=== PATIENT | female | born 1940 | race Caucasian/White ===

== ENCOUNTER 2022-01-16 23:28 | Emergency (ER) | payer MEDICARE, OTHER ==
[2022-01-17 00:08] LABS: BASOPHILS # (AUTO) 0.1 10^3/uL (0.0-0.1); BASOPHILS % (AUTO) 0.9 %; EOSINOPHILS # (AUTO) 0.4 10^3/uL (0.0-0.7); EOSINOPHILS % (AUTO) 5.2 %; HCT - HEMATOCRIT 37.4 % (37.0-47.0); LYMPHOCYTES # (AUTO) 1.5 10^3/uL (1.5-3.5); LYMPHOCYTES % (AUTO) 17.9 %; MEAN CORPUSCULAR HEMOGLOBIN 30.2 pg (27.0-31.0); MEAN CORPUSCULAR HGB CONC 32.1 g/dL (32.0-36.0); MEAN PLATELET VOLUME 9.7 fL (7.9-10.8); MONOCYTES # (AUTO) 0.9 10^3/uL (0.0-1.0); MONOCYTES % (AUTO) 10.6 %; NEUTROPHILS # (AUTO) 5.5 10^3/uL (1.5-6.6); NEUTROPHILS % (AUTO) 64.7 %; PLT - PLATELET COUNT 259 10^3/uL (130-450); RED BLOOD COUNT 3.98 10^6/uL (4.20-5.40); RED CELL DISTRIBUTION WIDTH 14.4 % (12.0-15.0); WHITE BLOOD COUNT 8.5 x10^3/uL (4.8-10.8)
--- NOTE | 2022-01-17 00:16 | XRAY Report ---
PROCEDURE: Chest 1 View X-Ray INDICATIONS: Chest Pain TECHNIQUE: One view of the chest was acquired. COMPARISON: 03/31/2014. 03/31 FINDINGS: Surgical changes and devices: None. Lungs and pleura: There are a few patchy indistinct opacities in the right mid and lower lung zones. No pleural effusions or pneumothorax. Mediastinum: Mediastinal contours appear normal. Heart size is normal. Bones and chest wall: No suspicious bony lesions. Overlying soft tissues appear unremarkable. IMPRESSION: 1. Patchy indistinct opacities in the right lung base suggestive of pneumonia given clinical history. Reviewed by: Fei Borjas MD on 01/17/2022 12:15 AM PDT Approved by: Fei Borjas MD on 01/17/2022 12:15 AM PDT Station ID: [id number]
[2022-01-17 00:21] LABS: ALBUMIN 3.7 g/dL (3.2-5.5); ALBUMIN/GLOBULIN RATIO 0.9 (1.0-2.2); BILIRUBIN,TOTAL 0.5 mg/dL (0.2-1.0); CALCIUM 9.8 mg/dL (8.5-10.3); CREATININE 1.6 mg/dL (0.4-1.0); POTASSIUM 4.1 mmol/L (3.5-5.0); TOTAL PROTEIN 7.7 g/dL (6.7-8.2)
--- NOTE | 2022-01-17 00:23 | ED Physician Documentation ---
PD HPI DYSPNEA - Stated complaint Stated Complaint: SOA - Chief complaint Chief Complaint: Resp - History obtained from History obtained from: Patient - History of Present Illness Timing - onset: How many days ago (4-5) Timing - duration: Days Timing - details: Gradual onset, Waxing and waning Pain level max: 0 Pain level now: 0 Improved by: Rest Worsened by: Exertion Associated symptoms: Cough, Wheezing, Bilateral edema. No: Fever, Chest pain / discomfort Similar symptoms before: Diagnosis (COPD) Recently seen: Not recently seen - Additional information Additional information: c/o 4-5 days of gradually worsening shortness of breath, CHASE , with productive cough. Denies fever. She is COVID vaccinated with booster. Review of Systems Constitutional: reports: Reviewed and negative Nose: reports: Reviewed and negative Throat: denies: Sore throat Cardiac: reports: Reviewed and negative Respiratory: reports: Dyspnea, Cough, Wheezing GI: reports: Reviewed and negative PD PAST MEDICAL HISTORY - Past Medical History Past Medical History: Yes Cardiovascular: Hypertension, High cholesterol Respiratory: Asthma, COPD Endocrine/Autoimmune: Type 2 diabetes - Past Surgical History Past Surgical History: Yes General: Cholecystectomy - Present Medications Home Medications: Ambulatory Orders Medication Instructions Recorded Confirmed Aspirin [Aspir 81] 81 mg QPM 03/31/14 01/16/22 Albuterol Sulf [Ventolin Hfa 2 puffs INH QID 01/16/22 01/17/22 Inhaler] Lisinopril/Hydrochlorothiazide 1 tab PO DAILY 01/16/22 01/16/22 [Zestoretic 20-12.5 mg Tablet] amLODIPine [Norvasc] 5 mg PO DAILY 01/16/22 01/16/22 Azithromycin [Zithromax] 250 mg PO DAILY #4 tablet 01/17/22 Insulin Glargine [Lantus Solostar] 50 units SQ DAILY 01/17/22 01/17/22 Latanoprost 0.005% Ophth Drops 2 drops EACHEYE TID 01/17/22 01/17/22 [Xalatan Ophth Drops] Metoprolol Succinate [Toprol Xl] 50 mg PO DAILY 01/17/22 01/17/22 Simvastatin [Zocor] 40 mg PO DAILY 01/17/22 01/17/22 predniSONE [Deltasone] 40 mg PO DAILY 3 Days #6 tablet 01/17/22 - Allergies Allergies/Adverse Reactions: Allergies Allergy/AdvReac Type Severity Reaction Status Date / Time Penicillins Allergy Edema Verified 01/16/22 23:39 Sulfa (Sulfonamide Allergy Unknown Verified 01/16/22 23:39 Antibiotics) - Social History Does the pt smoke?: Yes Smoking Status: Current every day smoker Does the pt drink ETOH?: No PD ED PE NORMAL - Vitals Vital signs reviewed: Yes - General General: Alert and oriented X 3, No acute distress, Well developed/nourished - HEENT HEENT: Moist mucous membranes - Neck Neck: Supple, no meningeal sign - Cardiac Cardiac: RRR, No murmur - Respiratory Respiratory: No respiratory distress - Abdomen Abdomen: Soft, Non tender - Derm Derm: Normal color, Warm and dry PD ED PE EXPANDED - Respiratory Respiratory: Wheezing (bilateral expiratory wheeze , decreased breath sounds bilaterally) Results - Vitals Vitals: Oxygen O2 Source Room air - EKG (time done) No standard instances Rate: Rate (enter#) (70) Rhythm: NSR [place]: LAD, Anterior hemiblock Intervals: Prolonged ND, RBBB QRS: LVH Ischemia: Normal ST segments - Labs Labs: Laboratory Tests 01/16/22 01/16/22 01/16/22 23:48 23:48 23:48 WBC 8.5 RBC 3.98 L Hgb 12.0 Hct 37.4 MCV 94.0 MCH 30.2 MCHC 32.1 RDW 14.4 Plt Count 259 MPV 9.7 Neut # (Auto) 5.5 Lymph # (Auto) 1.5 [place] # (Auto) 0.9 Eos # (Auto) 0.4 Baso # (Auto) 0.1 Absolute Nucleated RBC 0.00 Nucleated RBC % 0.0 Sodium 137 Potassium 4.1 Chloride 101 Carbon Dioxide 22 Anion Gap 14.0 H BUN 41 H Creatinine 1.6 H Estimated GFR (MDRD) 31 L Glucose 329 H Lactic Acid Calcium 9.8 Total Bilirubin 0.5 AST 25 ALT 26 Alkaline Phosphatase 60 Troponin I High Sens 13.5 B-Natriuretic Peptide Total Protein 7.7 Albumin 3.7 Globulin 4.0 Albumin/Globulin Ratio 0.9 L Lipase 39 Serum Ketones 01/16/22 01/16/22 01/17/22 23:48 23:48 00:47 WBC RBC Hgb Hct MCV MCH MCHC RDW Plt Count MPV Neut # (Auto) Lymph # (Auto) [place] # (Auto) Eos # (Auto) Baso # (Auto) Absolute Nucleated RBC Nucleated RBC % Sodium Potassium Chloride Carbon Dioxide Anion Gap BUN Creatinine Estimated GFR (MDRD) Glucose Lactic Acid 1.5 Calcium Total Bilirubin AST ALT Alkaline Phosphatase Troponin I High Sens B-Natriuretic Peptide 87 Total Protein Albumin Globulin Albumin/Globulin Ratio Lipase Serum Ketones NEGATIVE - Rads (name of study) chest xray Radiology: Prelim report reviewed, See rad report PD MEDICAL DECISION MAKING - ED course Complexity details: reviewed results, re-evaluated patient, considered differential, d/w patient ED course: mildly elevated bun/creatinine (41/1.6; she is on diuretic as combo htn medication), and blood sugar 329 but serum ketones negative. Her CBC is normal as is her hs-cTn, BNP, and lactic acid level. She is in NAD at rest and reports improvement after duoneb followed by albuterol neb. she is also given 10mg IV decadron. there appears to be pattern on cxr of early right-sided pneumonia and thus given zithromax in ED . She says she feels well enough to go home, requests d/c. Her pulse ox is low 90s on room air but NAD and speaks in full sentences. there is residual end-expiratory wheeze bilaterally but she has increased air movement. We carefully reviewed return precautions and she says she will come back if worse in any way .She does not use oxygen at home.Prescriptions for four more days of azithromycin and 3 days of prednisone electronically submitted to her pharmacy of choice Departure - Departure Disposition: 01 Home, Self Care Clinical Impression: Pneumonia Qualifiers: Pneumonia type: due to unspecified organism Laterality: right Lung location: unspecified part of lung Qualified Code(s): J18.9 - Pneumonia, unspecified organism Condition: Good Instructions: ED Pneumonia Adult Prescriptions: predniSONE [Deltasone] 40 mg PO DAILY 3 Days #6 tablet Azithromycin [Zithromax] 250 mg PO DAILY #4 tablet Comments: The chest xray shows pneumonia in the right lung, but the appearance suggests it is very early in the infection so hopefully the antibiotic will eliminate the pneumonia before it has a chance to progress. If your symptoms worsen, please return to the emergency department. If your symptoms do not worsen but are not improving after 3-4 days , seek reevaluation with your primary care provider. Prescriptions for the rest of the antibiotic (azithromycin) and another 3 days of steroid (prednisone) [facility] [place] Discharge Date/Time: 01/17/22 03:11
[2022-01-17] MEDS ORDERED: IPRATROPIUM/ALBUTEROL 3 ML NEB INH STA (00:24)
[2022-01-17] MEDS ORDERED: DEXAMETHASONE 10 MG/ML VIAL IVP STA (01:46)
[2022-01-17] MEDS ORDERED: ALBUTEROL NEB 2.5 MG/3 ML INH STA (01:46)
[2022-01-17] MEDS ORDERED: AZITHROMYCIN 250 MG TABLET PO STA (01:46)
[2022-01-17] MEDS ORDERED: guaiFENesin/DEXTROMETHORPHAN 10 ML UDC PO STA (02:48)
[2022-01-17] MEDS ORDERED: INSULIN REGULAR HUMAN 100 UNIT/1 ML 10 ML MDV IVP STA (02:59)
[2022-01-17] MEDS ORDERED: INSULIN REGULAR HUMAN 100 UNIT/1 ML 10 ML MDV SUBQ STA (03:03)
[2022-01-17 03:19] VITALS: BP 135/68
== END 2022-01-17 03:11 | disposition home or self-care (01) ==
LOC: ED 23:28
DX: J18.9 Pneumonia, unspecified organism (principal); I10 Essential (primary) hypertension; F17.200 Nicotine dependence, unspecified, uncomplicated; J44.9 Chronic obstructive pulmonary disease, unspecified; E11.9 Type 2 diabetes mellitus without complications; Z79.4 Long term (current) use of insulin
CPT/HCPCS: 36415; 71045; 80053; 82009; 83605; 83690; 83880; 84484; 85025; 93005; 94640; 94664; 96374; 99283; 99284; A9270; J1815

== ENCOUNTER 2023-05-25 11:15 | Emergency (ER) | payer MEDICARE, OTHER ==
--- OUTSIDE RECORDS SUMMARY | 2023-05-25 12:04 | EXTERNAL MEDICAL SUMMARY RPT | Continuity of Care Document ---
Author Name Unknown Address [address] [place] [address] Phone Organization [facility] Address [address] [place] [address] Phone Care Team Providers Care Cleaning Maid Name Role Phone Hadley Hunt Unavailable Unavailable Allergies and Intolerances date description facility reaction severity (no date) [facility] (no reaction) (no se verity) Medications date description facility 2023-03-01 00:[facility] [facility] Results/Labs test date facility value unit notes Social History date description facility 2023-03-30 00:00 Ex-smoker (finding) [facility] Vital Signs date measurement value units 2023-03-30 00:00 BMI 30.9 kg/m2 2023-03-30 00:00 BP_diastolic 72 mmHg 2023-03-30 00:00 BP_systolic 138 mmHg 2023-03-30 00:00 heart_rate 78 /min 2023-03-30 00:00 height_metric 160.02 cm 2023-03-30 00:00 height_standard 63 in 2023-03-30 00:00 weight_metric 79.15 kg 2023-03-30 00:00 weight_standard 174.5 lb
[2023-05-25] MEDS ORDERED: KETOROLAC 30 MG/ML VIAL IM STA (12:13)
--- NOTE | 2023-05-25 12:17 | ED Physician Documentation ---
History of Present Illness - Stated complaint Stated Complaint: RT ARM PX - Chief complaint Chief Complaint: Ext Problem - Additonal information Additional information: 82-year-old female presents emergency department for evaluation of right hand wrist and forearm pain. She states that on Monday evening she was crocheting. She states that she tries not to zahida too much because she often gets hand and forearm pain. While crocheting she dropped an instrument and she bent down to pick it up and felt a pop behind her right shoulder blade. She did not think much of it. However when she woke up Monday she had pain on her right forearm. She finds it difficult to move the hand due to pain especially on the dorsum of the forearm. There is no swelling or redness. There is only pain when she moves. No falls or trauma otherwise. She does report a history of carpal tunnel syndrome that she was hesitant to get surgery for. She is a diabetic. No blood thinners. No fevers. Review of Systems Constitutional: denies: Fever Cardiac: reports: Reviewed and negative Respiratory: reports: Reviewed and negative GI: reports: Reviewed and negative Musculoskeletal: reports: Extremity pain. denies: Extremity swelling PD PAST MEDICAL HISTORY - Past Medical History Cardiovascular: Hypertension, High cholesterol Respiratory: Asthma, COPD Endocrine/Autoimmune: Type 2 diabetes - Past Surgical History Past Surgical History: Yes General: Cholecystectomy - Present Medications Home Medications: Ambulatory Orders Medication Instructions Recorded Confirmed Aspirin [Aspir 81] 81 mg ORAL QPM 03/31/14 05/25/23 Albuterol Sulf [Ventolin Hfa 2 puffs INH QID 01/16/22 05/25/23 Inhaler] Lisinopril/Hydrochlorothiazide 1 tab PO DAILY 01/16/22 05/25/23 [Zestoretic 20-12.5 mg Tablet] amLODIPine [Norvasc] 5 mg PO DAILY 01/16/22 05/25/23 Insulin Glargine [Lantus Solostar] 50 units SQ DAILY 01/17/22 05/25/23 Latanoprost 0.005% Ophth Drops 2 drops EACHEYE TID 01/17/22 05/25/23 [Xalatan Ophth Drops] Metoprolol Succinate [Toprol Xl] 50 mg PO DAILY 01/17/22 05/25/23 Atorvastatin [Lipitor] 20 mg ORAL HS 05/25/23 05/25/23 Glipizide [Glipizide ER] 5 mg PO DAILY 05/25/23 05/25/23 oxyCODONE [Roxicodone] 5 mg PO TID PRN #20 tablet 05/25/23 - Allergies Allergies/Adverse Reactions: Allergies Allergy/AdvReac Type Severity Reaction Status Date / Time Penicillins Allergy Edema Verified 05/25/23 11:23 Sulfa (Sulfonamide Allergy Unknown Verified 05/25/23 11:23 Antibiotics) - Social History Does the pt smoke?: Yes Smoking Status: Current every day smoker Does the pt drink ETOH?: No PD ED PE NORMAL - General General: Alert and oriented X 3. No: No acute distress (Appears uncomfortable and in pain) - Neck Neck: Other (No tenderness elicited with palpation of the midline cervical or thoracic lumbar spinous processes. Full range of motion of the neck in all planes without pain elicited.) - Cardiac Cardiac: RRR, No murmur, Strong equal pulses (2+ radial pulses both hands) - Respiratory Respiratory: No respiratory distress, Clear bilaterally - Abdomen Abdomen: Normal bowel sounds, Soft - Extremities Extremities: No tenderness to palpate, Other (Patient moves the right shoulder without any tenderness. Pain is elicited with extension of the elbow along the dorsum of the forearm. No tenderness with palpation of the forearm. Pain extends from the fingers on dorsum of the forearm with flexion of the fingers. no pain with passive extension) Results - Vitals Vitals: Vital Signs - 24 hr 05/25/23 11:23 Temperature 37 C Heart Rate 71 Respiratory 16 Rate Blood Pressure 142/65 H O2 Saturation 95 Oxygen O2 Source Room air - Labs Labs: Laboratory Tests 05/25/23 05/25/23 12:30 12:30 WBC 14.5 H RBC 4.38 Hgb 13.7 Hct 41.3 MCV 94.3 MCH 31.3 H MCHC 33.2 RDW 13.3 Plt Count 284 MPV 9.9 Neut # (Auto) 11.1 H Lymph # (Auto) 1.8 [place] # (Auto) 1.2 H Eos # (Auto) 0.2 Baso # (Auto) 0.1 Absolute Nucleated RBC 0.00 Nucleated RBC % 0.0 Sodium 135 Potassium 4.3 Chloride 102 Carbon Dioxide 26 Anion Gap 7.0 BUN 32 H Creatinine 1.4 H Estimated GFR (MDRD) 36 L Glucose 165 H Calcium 10.9 H - Rads (name of study) right forearm Relevant Findings:: Final report received (Ill-defined calcification of the dorsal aspect of the wrist, suggest clinical correlation for possible triquetral fracture.) right shoulder Relevant Findings:: Final report received (No acute osseous abnormality) PD Medical Decision Making - ED course Complexity details: reviewed results, d/w patient, d/w family ED course: 82-year-old female presents emergency department for evaluation of acute right forearm pain that began 2 days ago. She states she has carpal tunnel and it can be bad when crocheting. She dropped a needle bent down to pick it up and felt a pop in her shoulder but since then she has been having pain in the forearm and wrist especially with any movement. No swelling, erythema or skin lesions. On exam she is quite tender on the dorsum of the forearm and wrist. History and exam was not consistent with a tenosynovitis. Electrolytes show chronic kidney disease essentially unchanged. She does have hyperglycemia not unexpected in the setting of known diabetes. CBC and electrolytes were obtained. She does have some mild leukocytosis white count of 14,000. However no fevers or evidence of infection. I suspect this is stress marginalization. I did obtain a shoulder and forearm x-ray. The interpretation by the radiologist suggest possibility of a triquetral fracture and the patient is indeed tender in this region. Given this she was placed in a wrist Velcro splint and given a sling. She did receive a single dose of Toradol here in the ER which markedly improved her pain. Unfortunately she does have chronic kidney disease making long-term use of NSAIDs undesirable. I will make the recommendation to ice the wrist, take Tylenol and a limited prescription of oxycodone for more severe pain. She will follow very closely with Dr. Fair her pcp She should obtain referral to orthopedics. The usual emergent return precautions were discussed for worsening symptoms. Departure - Departure Disposition: 01 Home, Self Care Clinical Impression: Right forearm pain Fracture of triquetrum of right wrist Qualifiers: Encounter type: initial encounter Fracture type: closed Fracture alignment: nondisplaced Qualified Code(s): S62.114A - Nondisplaced fracture of triquetrum [cuneiform] bone, right wrist, initial encounter for closed fracture CKD (chronic kidney disease) stage 3, GFR 30-59 ml/min Qualifiers: Chronic kidney disease stage 3 subtype: stage 3b (GFR 30-44) Qualified Code(s): N18.32 - Chronic kidney disease, stage 3b Condition: Stable Record reviewed to determine appropriate education?: Yes Instructions: ED Splint Care Velcro Follow-Up: Hadley Hunt MD [Primary Care Provider] - Prescriptions: oxyCODONE [Roxicodone] 5 mg PO TID PRN #20 tablet PRN Reason: Pain Comments: You were seen today because you develop pain in your right wrist and forearm. You do not remember any trauma but an x-ray of the wrist and forearm suggest a triquetral fracture. This is a bone in the wrist. Because you have poor kidney function is not typically safe for you to take NSAID medication like ibuprofen or naproxen. I would like you to wear the wrist will splint at all times with the exception of bathing or showering. You should obtain a referral to orthopedics from Dr. Fair. You can take Tylenol 500 mg 3 times a day for discomfort but for more severe pain a limited amount of oxycodone is being sent to the pharmacy. Use this cautiously. Will make you more prone to falls, dizzy or cause delirium. I am prescribing a short course of narcotic pain medication for you. These are potentially dangerous and addictive medications that should be used carefully. These medications may constipate you. Take an [id number] stool softener (docusate) twice daily with plenty of water while taking these medications. If you go 24 hours without a bowel movement, take [id number] miralax, per package instructions. Do not drink or drive while taking these medications. If you received narcotic or sedating medications while in the emergency department, do not drive for 24 hours. Store this medication in a safe, secure place and out of reach of children. It is a violation of federal law to give or sell this medication to another person or to use in a manner other than prescribed. The ED will not refill narcotic prescriptions, including prescriptions lost or stolen. To dispose of unwanted medications: 1. [facility] at [address] in [place] has a medication drop box. They accept prescription medications (in pill form) Monday through Monday 9:00 a.m. to 5:00 p.m. 2. The [facility] [employer] accepts prescription medications (in pill form only) for disposal year round. Call for more information. 3. Contact the [facility] for the next [facility] sponsored prescription drug collection event. , [phone], or [phone]; Note that many narcotic pain relievers also contain Tylenol/acetaminophen. Please ensure that your total dose of acetaminophen from all sources does not exceed 3 g (3000 mg) per day. Forms: PCP List
[2023-05-25 12:43] LABS: BASOPHILS # (AUTO) 0.1 10^3/uL (0.0-0.1); BASOPHILS % (AUTO) 0.8 %; EOSINOPHILS # (AUTO) 0.2 10^3/uL (0.0-0.7); EOSINOPHILS % (AUTO) 1.7 %; HCT - HEMATOCRIT 41.3 % (37.0-47.0); HGB - HEMOGLOBIN 13.7 g/dL (12.0-16.0); LYMPHOCYTES # (AUTO) 1.8 10^3/uL (1.5-3.5); LYMPHOCYTES % (AUTO) 12.2 %; MEAN CORPUSCULAR HEMOGLOBIN 31.3 pg (27.0-31.0); MEAN CORPUSCULAR HGB CONC 33.2 g/dL (32.0-36.0); MEAN CORPUSCULAR VOLUME 94.3 fL (81.0-99.0); MEAN PLATELET VOLUME 9.9 fL (7.9-10.8); MONOCYTES # (AUTO) 1.2 10^3/uL (0.0-1.0); MONOCYTES % (AUTO) 8.3 %; NEUTROPHILS # (AUTO) 11.1 10^3/uL (1.5-6.6); NEUTROPHILS % (AUTO) 76.2 %; PLT - PLATELET COUNT 284 10^3/uL (130-450); RED BLOOD COUNT 4.38 10^6/uL (4.20-5.40); RED CELL DISTRIBUTION WIDTH 13.3 % (12.0-15.0); WHITE BLOOD COUNT 14.5 x10^3/uL (4.8-10.8)
--- NOTE | 2023-05-25 12:50 | XRAY Report ---
PROCEDURE: Shoulder 3 View RT INDICATIONS: pop near scapula; now right shoulder pain TECHNIQUE: 4 views of the shoulder were acquired. COMPARISON: None. FINDINGS: Bones: No fractures or dislocations. No suspicious bony lesions. Moderate acromioclavicular joint osteoarthritic changes are seen. Visualized ribs appear intact. Soft tissues: No suspicious soft tissue calcifications. The visualized lungs are within normal limi ts. IMPRESSION: No acute bony abnormality. Moderate acromioclavicular joint osteoarthritis. Reviewed by: López Maxwell MD on 05/25/2023 12:49 PM PDT Approved by: López Maxwell MD on 05/25/2023 12:49 PM PDT Station ID: [id number]
--- NOTE | 2023-05-25 12:52 | XRAY Report ---
PROCEDURE: Forearm RT INDICATIONS: pain forearm with passive extension TECHNIQUE: 3 views of the forearm were acquired. COMPARISON: None FINDINGS: Bones: Ill-defined calcification over dorsal aspect of wrist is seen. No radial or ulnar fracture. El bow and wrist joint osteoarthritic changes are seen. No suspicious bony lesions. Soft tissues: No suspicious soft tissue calcifications or masses. IMPRESSION: Ill-defined calcifications in dorsal aspect of wrist joint, suggest clinical correlation for possible triquetral fracture. No other fracture or dislocation is seen. Wrist joint and elbow joint osteoarth ritis. Reviewed by: López Maxwell MD on 05/25/2023 12:51 PM PDT Approved by: López Maxwell MD on 05/25/2023 12:51 PM PDT Station ID: [id number]
[2023-05-25 13:15] LABS: CALCIUM 10.9 mg/dL (8.5-10.3); CREATININE 1.4 mg/dL (0.6-1.3); POTASSIUM 4.3 mmol/L (3.5-4.5)
[2023-05-25 13:49] VITALS: BP 111/79; O2SAT 97
== END 2023-05-25 13:47 | disposition home or self-care (01) ==
LOC: ED 11:15
DX: S62.114A Nondisplaced fracture of triquetrum [cuneiform] bone, right wrist, initial encounter for closed fracture (principal); X58.XXXA Exposure to other specified factors, initial encounter; N18.32 Chronic kidney disease, stage 3b; I10 Essential (primary) hypertension; E11.9 Type 2 diabetes mellitus without complications; Z79.84 Long term (current) use of oral hypoglycemic drugs; F17.200 Nicotine dependence, unspecified, uncomplicated
CPT/HCPCS: 36415; 80048; 85025; 96372; 99284

== ENCOUNTER 2024-03-11 10:28 | Outpatient (CLI) | payer MEDICARE, OTHER ==
[2024-03-11 11:47] LABS: BASOPHILS # (AUTO) 0.1 10^3/uL (0.0-0.1); BASOPHILS % (AUTO) 1.2 %; EOSINOPHILS # (AUTO) 0.4 10^3/uL (0.0-0.7); EOSINOPHILS % (AUTO) 3.3 %; HCT - HEMATOCRIT 34.7 % (37.0-47.0); HGB - HEMOGLOBIN 11.6 g/dL (12.0-16.0); LYMPHOCYTES # (AUTO) 2.3 10^3/uL (1.5-3.5); LYMPHOCYTES % (AUTO) 19.1 %; MEAN CORPUSCULAR HGB CONC 33.4 g/dL (32.0-36.0); MEAN CORPUSCULAR VOLUME 95.6 fL (81.0-99.0); MEAN PLATELET VOLUME 9.3 fL (7.9-10.8); MONOCYTES # (AUTO) 1.1 10^3/uL (0.0-1.0); MONOCYTES % (AUTO) 9.1 %; NEUTROPHILS # (AUTO) 7.9 10^3/uL (1.5-6.6); NEUTROPHILS % (AUTO) 66.4 %; PLT - PLATELET COUNT 400 10^3/uL (130-450); RED BLOOD COUNT 3.63 10^6/uL (4.20-5.40); RED CELL DISTRIBUTION WIDTH 12.6 % (12.0-15.0); WHITE BLOOD COUNT 11.9 x10^3/uL (4.8-10.8)
[2024-03-11 12:08] LABS: CALCIUM 11.9 mg/dL (8.5-10.3); CREATININE 2.1 mg/dL (0.6-1.3); POTASSIUM 4.6 mmol/L (3.5-4.5)
== END 2024-03-11 10:29 | disposition home or self-care (01) ==
LOC: LAB.N 10:28
PROVIDERS: ATTEND Internal Medicine Interventional Cardiology
DX: I70.218 Atherosclerosis of native arteries of extremities with intermittent claudication, other extremity (principal)
CPT/HCPCS: 36415; 80048; 85025

== ENCOUNTER 2024-04-23 12:46 | Outpatient (CLI) | payer MEDICARE, OTHER ==
[2024-04-23 18:02] LABS: CALCIUM 11.3 mg/dL (8.5-10.3); POTASSIUM 4.7 mmol/L (3.5-4.5)
== END 2024-04-23 12:47 | disposition home or self-care (01) ==
LOC: LAB.N 12:46
PROVIDERS: ATTEND Internal Medicine Interventional Cardiology
DX: N18.4 Chronic kidney disease, stage 4 (severe) (principal)
CPT/HCPCS: 36415; 80048